=== PATIENT | female | born 1990 | race Caucasian/White ===

== ENCOUNTER 2021-12-05 00:37 | Emergency (ER) | payer OTHER ==
[2021-12-05 00:53] VITALS: BP 140/86; PULSE 74; TEMP 98.3; BMI 26.6
[2021-12-05] MEDS ORDERED: IBUPROFEN 600 MG TABLET (FP) PO ONE ×2 (01:12→01:19)
== END 2021-12-05 02:15 | disposition home or self-care (01) ==
LOC: FER 00:37
DX: S63.8X1A Sprain of other part of right wrist and hand, initial encounter (principal)
CPT/HCPCS: 73130-TC-RT-FY; 99284-25